=== PATIENT | male | born 1980 | race Caucasian/White ===

== ENCOUNTER 2023-06-30 20:18 | Emergency (ER) | payer SELFPAY ==
[~2023-06-30] VITALS: Ht 175.3 cm; Wt 77.0 kg
[2023-06-30 20:23] VITALS: BP 113/68; PULSE 68; RESP 16; TEMP 98.5; O2SAT 99
== END 2023-06-30 20:45 | disposition left against medical advice (07) ==
LOC: ER 20:18
DX: R21 Rash and other nonspecific skin eruption (principal); Z53.21 Procedure and treatment not carried out due to patient leaving prior to being seen by health care provider
CPT/HCPCS: 99281